=== PATIENT | male | born 1970 | race African-American/Black ===

== ENCOUNTER 2023-05-27 13:46 | Emergency (ER) | payer MEDICAID ==
[~2023-05-27] VITALS: Ht 182.9 cm; Wt 85.0 kg
[2023-05-27 13:49] VITALS: O2SAT 100
[2023-05-27] MEDS ORDERED: ONDANSETRON HCL 4MG/2ML INJ IV STA (14:28)
[2023-05-27] MEDS ORDERED: FENTANYL CITRATE/PF 50MCG/ML 2ML VIAL IV ONE (14:30)
[2023-05-27 15:11] LABS: CHLORIDE 109 mEq/L (98-107); INDEX HEMOLYSI 1 (1-3); INDEX ICTERIC 1 (1-4); INDEX LIPEMIC 1 (1-3); POTASSIUM 3.4 mEq/L (3.5-5.1); SODIUM 137 mEq/L (136-145)
[2023-05-27 15:13] LABS: D-DIMER 0.27 mg/L FEU (<0.50); PROTHROMBIN TIME 10.4 sec (9.6-11.0)
[2023-05-27 15:15] LABS: BASOPHILS % 0.4 % (0.0-2.0); EOSINOPHILS % 3.3 % (0.0-5.0); HEMATOCRIT. 42.9 % (42.0-52.0); HEMOGLOBIN. 14.2 g/dL (14.0-18.0); LYMPHOCYTES % 33.1 % (20.0-50.0); MEAN CORPUSCULAR HEMOGLOBIN 29.5 pg (28.0-32.0); MEAN CORPUSCULAR HGB CONC 33.1 g/dL (31.0-37.0); MEAN CORPUSCULAR VOLUME 89.1 fL (80.0-94.0); MEAN PLATELET VOLUME 9.1 fl (7.4-10.4); MONOCYTES % 5.6 % (2.0-8.0); NEUTROPHILS % 57.6 % (40.0-76.0); PLATELET 194 x1000/uL (130-400); RED BLOOD CELL COUNT 4.82 mill/uL (4.7-6.1); RED CELL DISTRIBUTION WIDTH 13.5 % (11.6-14.6); WHITE BLOOD COUNT 6.5 x1000/uL (4.5-11.0)
[2023-05-27 15:42] LABS: ALANINE AMINOTRANSFERASE 25 IU/L (13-61); ALBUMIN 3.7 g/dL (3.4-5.0); ASPARTATE AMINOTRANSFERASE 19 IU/L (15-37); BILIRUBIN TOTAL 0.5 mg/dL (0.1-1.0); CALCIUM 8.7 mg/dL (8.5-10.1); CARBON DIOXIDE 24 mEq/L (21-32); GLUCOSE 89 mg/dL (70-105); NT PRO B-TYPE NATRIURETIC PEP 12 pg/mL (5-125); PROTEIN TOTAL 7.1 g/dL (6.0-8.3); TROPONIN I HIGH SENSITIVITY 6 ng/L (<78); UREA NITROGEN BLOOD 11 mg/dL (7-21)
[2023-05-27] MEDS ORDERED: LORAZEPAM 2MG/ML CPJ IV ONE (16:00)
[2023-05-27 17:22] LABS: TROPONIN I HIGH SENSITIVITY 6 ng/L (<78)
[2023-05-27 19:00] VITALS: BP 133/83; PULSE 65; RESP 16; TEMP 98.2
== END 2023-05-27 19:10 | disposition home or self-care (01) ==
LOC: ER 13:46
DX: R07.89 Other chest pain (principal)
CPT/HCPCS: 80053; 83880; 85025; 85379; 85610; 84484; 36415; 71045; 93005; 96374; 96375; 99285; J3010; J2060; J2405; Z7610 ×2